=== PATIENT | female | born 1980 | race Two or more races ===

== ENCOUNTER 2024-05-25 10:52 | Outpatient (RCR) | payer MEDICAID, SELFPAY | END 2024-06-03 23:59 | disposition home or self-care (01) | LOC: CPTX 10:52 | PROVIDERS: PCP Podiatrist; Referring Provider Podiatrist; Visit Provider Podiatrist | DX: Z53.8 Procedure and treatment not carried out for other reasons (principal) ==

== ENCOUNTER 2024-06-26 13:30 | Outpatient (RCR) | payer MEDICAID, SELFPAY ==
--- NOTE | 2024-06-09 15:14 | PT.OIERPT ---
PT OP Initial Eval Patient Information Outpatient Physical Therapy Treatment Date: 06/09/24 Visit Reasons: Bilateral foot pain Medical Diagnosis: M77.31; M77.32 Treatment Dx #1: Bilateral Feet Pain Start of Care: 06/09/24 Smoking Status Smoking Status: Never smoker Initial Assessment Subjective: Pt is a 44 y/o female reports of chronic feet pain (02/11). Pt mention there are bone spur underneath her feet. Pt has limitation with standing, walking, chores, balance, and recreational activities. Pt's optometric technologist will like her to attempt physical therapy first prior to any surgical intervention indicated. Objective: Bilateral Ankle AROM: all motions are WNL Bilateral Ankle MMTs: grossly 4-/5 Bilateral Hip MMTs: grossly 3+/5 Assessment: Pt demonstrate feet pain leading to difficulty with ADLs. Pt will attempt physical therapy if pain persist Pt will be refer back to provider for further consultation. 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
--- NOTE | 2024-06-13 11:01 | PT.ODAYNRPT ---
PT Outpatient Daily Note OP Daily Note Outpatient Physical Therapy Treatment Date: 06/13/24 Visit Reasons: Bilateral foot pain Subjective: Pt reports B foot pain worse on R side. Objective: Please see flow sheet for ther ex list. Assessment: Interventions completed with minimal pain and soreness. Plan: Continue with POC. Length of Time (minutes) of Treatment: 30 Minutes Procedure Charges Therapeutic Exercise 30 minutes: Yes
--- NOTE | 2024-06-15 10:53 | PT.ODAYNRPT ---
PT Outpatient Daily Note OP Daily Note Outpatient Physical Therapy Treatment Date: 06/15/24 Visit Reasons: Bilateral foot pain Subjective: Pt reports she was sore after last session and still foot is sore today. Objective: Please see flow sheet for ther ex list. Assessment: Held self STM with thera bar due to pt c/o increase discomfort and soreness after last session with STM. Plan: Continue with POC. Length of Time (minutes) of Treatment: 30 Minutes Procedure Charges Therapeutic Exercise 30 minutes: Yes
--- NOTE | 2024-06-21 13:12 | PT.ODAYNRPT ---
PT Outpatient Daily Note OP Daily Note Outpatient Physical Therapy Treatment Date: 06/21/24 Visit Reasons: Bilateral foot pain Subjective: Pt continues to report pain in the bottom of feet, no changes to report. Objective: Please see flow sheet for ther ex list. Assessment: Pt continues to report pain, no progress at this time. Plan: Continue with POC. Length of Time (minutes) of Treatment: 30 Minutes Procedure Charges Therapeutic Exercise 30 minutes: Yes
--- NOTE | 2024-06-26 13:55 | PT.ODAYNRPT ---
PT Outpatient Daily Note OP Daily Note Outpatient Physical Therapy Treatment Date: 06/26/24 Visit Reasons: Bilateral foot pain Subjective: Pt reports foot pain is the same, tries to wear shoes that have more cushion to help with pain and for comfort. Objective: Please see flow sheet for ther ex list. Assessment: Pt demonstrates poor activity tolerance due to increase pain and discomfort, no changes in symptoms at this time. Plan: Continue with POC. Length of Time (minutes) of Treatment: 30 Minutes Procedure Charges Therapeutic Exercise 30 minutes: Yes
== END 2024-07-04 23:59 | disposition home or self-care (01) ==
LOC: CPTX 13:30
PROVIDERS: PCP Podiatrist; Referring Provider Podiatrist; Visit Provider Podiatrist
DX: M79.672 Pain in left foot (principal); M79.671 Pain in right foot; R26.2 Difficulty in walking, not elsewhere classified; R26.89 Other abnormalities of gait and mobility; G89.29 Other chronic pain; M77.31 Calcaneal spur, right foot; M77.32 Calcaneal spur, left foot
CPT/HCPCS: 97110; 97162

== ENCOUNTER 2024-07-06 14:13 | Outpatient (RCR) | payer MEDICAID, SELFPAY ==
--- NOTE | 2024-07-06 16:04 | PT.ODS1RPT ---
PT OP Progress/Discharge Note Date of Service: 07/06/24 Progress Note/DC Note Progress Note/Discharge Note: DC Note Patient Information Visit Reasons: Bilateral foot pain Medical Diagnosis: M77.31; M77.32 Treatment Dx #1: Bilateral Feet Pain Service Continue Service or Discharge: Discharge Discharge Date: 07/06/24 Status Subjective: Pt's feet is about the same. No change in pain which continues to limit her from perform ADLs. Pt will like to stop physical therapy and follow up with MD rodrigues. Objective: Bilateral Ankle AROM: all motions are WNL Bilateral Ankle MMTs: grossly 4/5 Bilateral Hip MMTs: grossly 3+/5 Assessment: Pt demonstrate functional ankle mobility and strenght, however, no change in pain leading to difficulty with ADLs. Pt will no longer benefit from physical therapy due to minimal progress towards goals. Pt was instructed on HEP last session and educated to continue exercises to maintain overall mobility. Pt performed all exercises safely, thank you for your referrals. Plan: D/C home with HEP and follow up with provider Procedure Charges Therapeutic Exercise 30 minutes: Yes
== END 2024-08-04 23:59 | disposition home or self-care (01) ==
LOC: CPTX 14:13
PROVIDERS: PCP Podiatrist; Referring Provider Podiatrist; Visit Provider Podiatrist
DX: M79.672 Pain in left foot (principal); M79.671 Pain in right foot; G89.29 Other chronic pain; R26.2 Difficulty in walking, not elsewhere classified; R26.89 Other abnormalities of gait and mobility; M77.31 Calcaneal spur, right foot; M77.32 Calcaneal spur, left foot
CPT/HCPCS: 97110

== ENCOUNTER → 2024-10-19 | Outpatient (CLI) | payer MEDICAID, SELFPAY ==
--- NOTE | 2024-10-19 10:00 | XR_ITS ---
Examination: MRI right ankle, without contrast Date and time of exam: October 19, 2024 1105 hours INDICATIONS: Ankle pain paresthesias 8 years worse the last 6 months Technique: Multiple axial sagittal and coronal images of the right ankle have been obtained with the Siemens high-resolution 1.5 [place] MRI scanner. Images obtained include T2-weighted fat-suppressed sagittal sections, TR 3500, TE 46, T2 weighted coronal fat suppressed images, TR 3050, TE 84, T2-weighted transverse fat suppressed images, TR 3260, TE 63, proton density transverse images, TR 4720 TE 46, and T1 weighted coronal images, TR 560, TE 13. Findings: No occult fracture, bone contusion marrow edema or avascular necrosis Negative for sinus Tarsi syndrome Moderate plantar fasciitis Achilles tendon intact Anterior posterior inferior tibiofibular ligaments intact Moderate strain anterior talofibular ligament No ankle effusion Negative for osteochondritis dissecans Flexor tendons intact as well as extensor tendons no tendinitis IMPRESSION: Moderate strain anterior talofibular ligament No occult fracture, bone contusion, marrow edema or avascular necrosis
--- NOTE | 2024-10-19 10:30 | XR_ITS ---
Examination: MRI left ankle, without contrast Date and time of exam: October 19, 2024 1127 hours INDICATIONS: Ankle pain 8 years worse the last 6 months Technique: Multiple axial sagittal and coronal images of the left ankle have been obtained with the Siemens high-resolution 1.5 [place] MRI scanner. Images obtained include T2-weighted fat-suppressed sagittal sections, TR 3500, TE 46, T2 weighted coronal fat suppressed images, TR 3050, TE 84, T2-weighted transverse fat suppressed images, TR 3260, TE 63, proton density transverse images, TR 4720 TE 46, and T1 weighted coronal images, TR 560, TE 13. Findings: No occult fracture or marrow edema bone contusion or avascular necrosis Negative for sinus Tarsi syndrome Achilles tendon intact Mild plantar fasciitis Anterior posterior inferior tibiofibular ligaments talofibular ligaments intact Negative for tendinitis flexor or extensor tendons Negative for osteochondritis dissecans IMPRESSION: No occult fracture, marrow edema, bone contusion or avascular necrosis Mild plantar fasciitis
== END | disposition home or self-care (01) ==
PROVIDERS: PCP Registered Nurse Community Health; Referring Provider Podiatrist; Visit Provider Podiatrist
DX: S99.811A Other specified injuries of right ankle, initial encounter (principal); X58.XXXA Exposure to other specified factors, initial encounter; M72.2 Plantar fascial fibromatosis
CPT/HCPCS: 73721

== ENCOUNTER → 2024-12-01 | Outpatient (CLI) | payer MEDICAID, SELFPAY ==
--- NOTE | 2024-12-01 15:30 | XR_ITS ---
Examination: Screening digital mammography, bilateral Computer aided detection 3-D breast Tomosynthesis, bilateral Date and time of exam: December 01, 2024 1526 hours Comparison November 13, 2021 Indication: Screening Technique: Nonmagnified MLO, CC views of the breasts to been obtained, reconstructed from 3-D Tomosynthesis images. R2 computer aided detection program utilized for evaluation of suspicious masses and/or abnormal calcifications. 3-D Tomosynthesis images obtained. Findings: Scattered areas of fibroglandular density. Benign calcifications. No interval suspicious masses Impression: BI-RADS category II: Benign Findings. Recommend 1 year follow-up mammogram.
== END | disposition home or self-care (01) ==
LOC: CDIM 15:14
PROVIDERS: PCP Registered Nurse Community Health; Referring Provider Registered Nurse Community Health; Visit Provider Registered Nurse Community Health
DX: Z12.31 Encounter for screening mammogram for malignant neoplasm of breast (principal); R92.323 Mammographic fibroglandular density, bilateral breasts; R92.1 Mammographic calcification found on diagnostic imaging of breast
CPT/HCPCS: 77063; 77067